=== PATIENT | male | born 1955 | race Caucasian/White ===

== ENCOUNTER 2024-02-13 16:11 | Emergency (ER) | payer BC, SELFPAY ==
[2024-02-13 16:14] VITALS: BP 153/84
--- NOTE | 2024-02-13 16:45 | ED.GENMED ---
History of Present Illness
General
Chief Complaint: Abdominal Pain
Source: patient
Exam Limitations: none
Time Seen by Provider: 02/13/24 16:45
Nursing documentation reviewed up to this point in time: agreed with
Travel History
Have you had any contact with someone who has COVID-19?: No
Do you have any symptoms of coronavirus? Fever > 100 degrees, chills, cough, shortness of breath, sore throat, loss of taste or smell, muscle aches, or headache?: No
History of Present Illness
History of Present Illness:
Patient presents to ED secondary to sudden onset of left lower abdominal pain associated with nausea and vomiting, on approximately 5 hours prior to arrival, while he was driving. Patient has had kidney stones approximately 15 years ago, but is
unsure if his symptoms are similar. Denies fever or chills. Denies trauma. Denies diarrhea. Abdominal pain described as sharp, with radiation to his left flank, without any alleviating or exacerbating factors. Denies recent illness. Denies
recent change in medications or diet. Patient's medical history is significant atrial fibrillation, for which he takes Eliquis.
Review of Systems
Review of Systems
Allergies reviewed?: Yes
All Other Systems: ROS reviewed and negative except as documented in HPI and ROS
Constitutional: Reports no symptoms; Denies fever
Respiratory: Reports no symptoms
Cardiac: Reports no symptoms
ABD/GI: Reports abdominal pain, nausea and vomiting; Denies diarrhea
: Reports no symptoms
Musculoskeletal: Reports no symptoms
Skin: Reports no symptoms
Neurological: Reports no symptoms
Phy Exam
Physical Exam
Physical Exam:
Physical Exam
General: no apparent distress, not acutely ill. afebrile
Head: nc/at. eomi
Neck: supple. no meningeal signs.
Heart: s1/s2 regular rate and rhythm, no murmur. equal radial pulses.
Lungs: no acute respiratory distress. clear bilaterally
Abdomen: normal bowel sounds. not tender.
Neuro: alert and oriented. no focal neurological deficits
Skin: no rash
Psychiatric: well kept. interactive and cooperative
Extremities: no edema. no calf tenderness.
Course
Orders/Labs/Results
Orders:
Orders
02/13/24 17:09
Ketorolac [Toradol] 30 mg IV NOW STA
02/13/24 17:10
0.9% Sodium Chloride 500 ml [Nss] 500 ml IV BOLUS
02/13/24 17:19
Complete Blood Count/With Diff Urgent
Comprehensive Metabolic Panel Urgent
Lipase Urgent
Urinalysis Reflex To Culture Urgent
Date Specimen was Collected: 02/13/24
Time Specimen was Collected: 17:10
Urine Microscopic Reflex Cult Urgent
02/13/24 17:25
CT Abd/pel Without Iv Or Oral Urgent
Comment:
Reason For Exam: left flank pain w hx kidney stone
02/13/24 17:31
Morphine Sulfate 2 mg IV NOW STA
02/13/24 19:06
Oxycodone/Acetaminophen [Percocet 5/325] 1 tablet PO NOW STA
Abnormal Lab Results
02/13/24
17:19
WBC 12.8 H 10^3/uL
(4.8-10.8)
MPV 11.7 H fL
(7.4-10.4)
Abs Immat Gran (auto) 0.1 H 10^3/uL
(0-0.05)
Absolute Neuts (auto) 10.2 H 10^3/uL
(1.4-6.5)
Absolute Monos (auto) 0.7 H 10^3/uL
(0.1-0.6)
Neutrophils % 79.4 H %
(42.2-75.2)
Lymphocytes % 13.9 L %
(20.5-51.1)
Chloride 111 H mmol/L
(98-107)
Carbon Dioxide 20 L mmol/L
(22-30)
BUN 29 H mg/dl
(9-20)
Creatinine 1.7 H mg/dL
(0.7-1.3)
Glucose 120 H mg/dl
(70-99)
Urine Ketones 2+ A
(Negative)
Ur Occult Blood Reflex 1+ A
(Negative)
Urine RBC 11-15 A /HPF
(0-2)
Urine Bacteria (Reflex) Few A
(Negative)
02/13/24 17:19
02/13/24 17:19
Vital Signs
Initial and Last Documented VS:
Initial Vital Signs
Temp Pulse Resp BP Pulse Ox
97.6 F 64 20 153/84 98
02/13/24 16:14 02/13/24 16:14 02/13/24 16:14 02/13/24 16:14 02/13/24 16:14
Last Documented Vital Signs
Temp Pulse Resp BP Pulse Ox
99.0 F 75 20 137/90 95
02/13/24 20:09 02/13/24 19:30 02/13/24 16:14 02/13/24 19:00 02/13/24 19:00
MDM/Problems Addressed
MDM/Problems Addressed:
History, exam, and CT scan consistent with obstructing renal stone. Patient reports complete resolution of pain after treatment. Patient will be discharged home in stable condition, to the care of his , with referral to urology for an
outpatient consultation. Advised to return to ED with worsening symptoms, i.e. fever/worsening pain/inability urinate.
Increased creatinine noted on initial blood work today, without any previous blood work for comparison. As such, will advise patient to speak with her primary care physician and repeat blood work after resolution of his current symptoms.
*Critical Care Note
Total Time (30-74mins, 75-104mins- exclusive of procedures): Not Applicable
ED Attending Note
-
Portions of this chart may have been created with voice recognition software.� Occasional wrong word or��sound alike� substitutions may have occurred due to the inherent limitations of voice recognition software.
Discharge Plan
Departure
Patient Disposition: Home (Routine Discharge)
Date of Disposition: 02/13/24
Time of Disposition: 19:02
Patient with high blood pressure during this ER visit?: Yes
Condition: Good
Discharge Problem:
Renal colic, Acute renal failure (ARF)
Instructions: Renal Colic (DC), Acute Kidney Injury (DC)
Prescriptions:
New
oxycodone-acetaminophen [Percocet] 5-325 mg Tablet
1 tab PO Q6HPRN PRN (Reason: pain) Qty: 12 0RF
tamsulosin [Flomax] 0.4 mg Capsule
0.4 mg PO DAILY Qty: 7 0RF
ondansetron 4 mg Tablet,Disintegrating
4 mg PO TIDPRN PRN (Reason: nausea/vomiting) Qty: 12 0RF
ketorolac 10 mg tablet
10 mg PO Q8H PRN (Reason: Pain) Qty: 10 0RF
Rx Instructions:
maximum total duration of 5 days from all oral, intranasal, or parenteral formulations
No Action
carvedilol 25 mg Tablet
25 mg PO BID
sotalol 80 mg Tablet
80 mg PO BID
omeprazole 20 mg Capsule,Delayed Release(Dr/Ec)
20 mg PO DAILY
escitalopram oxalate [Lexapro] 10 mg Tablet
10 mg PO DAILY
Eliquis 5 mg Tablet
5 mg PO BID
Referrals:
Sofía Oropeza MD [Family Provider] -
John Schafer MD [Active] -
Activity Restrictions/Additional Instructions:
As discussed, please follow-up with your primary care physician and/or referred to urologist for further evaluation and treatment. Please return to ED with worsening symptoms, i.e. fever/worsening pain/inability urinate. In addition, blood work
today revealed abnormal kidney function test, which will need to be repeated in 2 to 3 weeks via your primary care physician. Your prescriptions have been sent electronically to [facility] pharmacy in [place].
Interventions
Interventions:
*Risk Screen - Suicide Last Done: 02/13/24 16:14
*General Assessment Last Done: 02/13/24 16:14
*Neglect/Abuse Screening Last Done: 02/13/24 16:14
ED- Fall Risk Assessment Last Done: 02/13/24 17:14
*ED COVID-19 Vaccine History Last Done: 02/13/24 17:14
*Nursing Disposition Last Done: 02/13/24 20:09
YM-Qqvsoj-Grlzwconsh Assessment Last Done: 02/13/24 17:14
Discharge Date and Time
Discharge Date/Time: 02/13/24 20:10
[2024-02-13 17:14] VITALS: BMI 30.8
[2024-02-13] MEDS: NSS 500 IV (17:19)
[2024-02-13] MEDS: TORADOL 30 MG IV (17:19)
[2024-02-13 17:30] LABS: % Basophils 0.9 % (0-2); % Eosinophils 0.2 % (0-6); % Immature Granulocytes 0.4 % (0-0.5); % Lymphocytes 13.9 % (20.5-51.1); % Monocytes 5.2 % (1.7-9.3); % Neutrophils 79.4 % (42.2-75.2); Absolute Basophils 0.1 10^3/uL (0-0.2); Absolute Immature Granulocytes 0.1 10^3/uL (0-0.05); Absolute Lymphocytes 1.8 10^3/uL (1.2-3.4); Absolute Monocytes 0.7 10^3/uL (0.1-0.6); Absolute Neutrophils 10.2 10^3/uL (1.4-6.5); Hematocrit 44.7 % (39.0-52.0); Mean Corp Hgb Conc. 33.6 g/dL (33.0-37.0); Mean Corpuscular Hgb 29.8 pg (27.0-31.0); Mean Corpuscular Volume 88.7 fL (80.0-94.0); Mean Platelet Volume 11.7 fL (7.4-10.4); Nucleated Red Blood Cells % 0 % (-); Platelet Count 172 10^3/uL (130-400); Red Blood Cell Count 5.04 10^6/uL (4.70-6.10); Red Cell Dist. Width 12.9 % (11.5-14.5); White Blood Cell Count 12.8 10^3/uL (4.8-10.8)
[2024-02-13 17:47] LABS: ALT (SGPT) 38 U/L (0-50); AST (SGOT) 37 U/L (17-59); Albumin 4.4 g/dl (3.5-5.0); Alkaline Phosphatase 110 U/L (38-126); Blood Urea Nitrogen 29 mg/dl (9-20); Calcium 9.5 mg/dl (8.4-10.2); Carbon Dioxide 20 mmol/L (22-30); Chloride 111 mmol/L (98-107); Estimated Creatinine Clearance 50 ml/min; Glucose 120 mg/dl (70-99); Lipase 68 U/L (23-300); Potassium 5.1 mmol/L (3.5-5.1); Sodium 138 mmol/L (135-145); Total Protein 7.4 g/dl (6.3-8.2); eGFR 43.91
[2024-02-13 18:11] VITALS: BP 139/93
[2024-02-13 19:00] VITALS: BP 137/90
[2024-02-13] MEDS: PERCOCET 5/325 1 TABLET PO (19:37)
[2024-02-13 19:52] LABS: Urine Albumin Trace (Neg - Trace); Urine Bilirubin Negative (Negative); Urine Character Clear (Clear); Urine Color Yellow; Urine Glucose Negative (Negative); Urine Ketone 2+ (Negative); Urine Leukocyte Negative (Negative); Urine Nitrite Negative (Negative); Urine Occult Blood 1+ (Negative); Urine Urobilinogen Negative (Neg - 1+)
[2024-02-13 20:02] LABS: Urine Sperm Seen; Urine Squamous Cell 0-2 /LPF (Few)
[2024-02-13 20:03] LABS: Urine Bacteria Few (Negative)
[2024-02-13 20:04] LABS: Urine White Cell 0-2 /HPF (0-5)
== END 2024-02-13 20:10 | disposition home or self-care (01) ==
LOC: EMR 16:11
PROVIDERS: EMERGENCY PHYSICIAN Emergency Medicine; FAMILY PHYSICIAN Internal Medicine
DX: R10.32 Left lower quadrant pain (principal)
CPT/HCPCS: 99284; 96374; 96361; 74176; 80053; 81003; 81015; 83690; 85025

== ENCOUNTER 2024-02-14 22:21 | Inpatient (IN) | payer BC, SELFPAY ==
[2024-02-14 20:34] VITALS: BP 117/70
[2024-02-14 20:53] LABS: % Basophils 0.3 % (0-2); % Eosinophils 0.1 % (0-6); % Immature Granulocytes 0.4 % (0-0.5); % Lymphocytes 8.5 % (20.5-51.1); % Monocytes 9.5 % (1.7-9.3); % Neutrophils 81.2 % (42.2-75.2); Absolute Basophils 0.1 10^3/uL (0-0.2); Absolute Immature Granulocytes 0.1 10^3/uL (0-0.05); Absolute Lymphocytes 1.4 10^3/uL (1.2-3.4); Absolute Monocytes 1.6 10^3/uL (0.1-0.6); Absolute Neutrophils 13.2 10^3/uL (1.4-6.5); Hematocrit 38.7 % (39.0-52.0); Hemoglobin 13.9 g/dL (13.0-18.0); Mean Corp Hgb Conc. 35.9 g/dL (33.0-37.0); Mean Corpuscular Hgb 30.9 pg (27.0-31.0); Mean Platelet Volume 11.3 fL (7.4-10.4); Nucleated Red Blood Cells % 0 % (-); Platelet Count 157 10^3/uL (130-400); White Blood Cell Count 16.3 10^3/uL (4.8-10.8)
[2024-02-14 20:54] LABS: Urine Albumin Trace (Neg - Trace); Urine Bilirubin Negative (Negative); Urine Character Clear (Clear); Urine Color Yellow; Urine Glucose Negative (Negative); Urine Ketone Trace (Negative); Urine Leukocyte Trace (Negative); Urine Nitrite Negative (Negative); Urine Occult Blood 4+ (Negative); Urine Urobilinogen Negative (Neg - 1+)
[2024-02-14 21:03] LABS: Urine Bacteria Moderate (Negative); Urine Red Blood Cell 90-100 /HPF (0-2); Urine White Cell 0-2 /HPF (0-5)
[2024-02-14 21:04] LABS: Lactic Acid 1.1 mmol/L (0.7-2.0)
[2024-02-14 21:06] LABS: ALT (SGPT) 44 U/L (0-50); AST (SGOT) 67 U/L (17-59); Albumin 3.9 g/dl (3.5-5.0); Alkaline Phosphatase 102 U/L (38-126); Blood Urea Nitrogen 29 mg/dl (9-20); Calcium 8.6 mg/dl (8.4-10.2); Carbon Dioxide 19 mmol/L (22-30); Chloride 107 mmol/L (98-107); Glucose 101 mg/dl (70-99); Potassium 3.9 mmol/L (3.5-5.1); Sodium 132 mmol/L (135-145); Total Bilirubin 1.4 mg/dl (0.2-1.3); Total Protein 6.7 g/dl (6.3-8.2); eGFR 36.13
[2024-02-14 21:34] VITALS: BP 120/70
[2024-02-14 21:40] VITALS: BP 120/70; BMI 32.9
--- NOTE | 2024-02-14 21:42 | ED.GENMED ---
History of Present Illness
General
Chief Complaint: Fever
Source: patient, spouse, previous radiology exam (ER visit from yesterday February 12. Complains of left flank pain. CAT scan showed 7 mm proximal left ureteral stone with mild hydronephrosis. Creatinine of 1.7.) and previous hospital records (ED
visit from yesterday complaining of left flank pain found to have 7 mm proximal left ureteral stone along with elevated creatinine of 1.7.)
Exam Limitations: none
Time Seen by Provider: 02/14/24 21:24
Travel History
Have you had any contact with someone who has COVID-19?: No
Do you have any symptoms of coronavirus? Fever > 100 degrees, chills, cough, shortness of breath, sore throat, loss of taste or smell, muscle aches, or headache?: No
History of Present Illness
History of Present Illness:
This is a 68-year-old gentleman with history of paroxysmal atrial fibrillation maintained on Eliquis, history of hypertension, hyperlipidemia and remote history of kidney stones who initially presented to this ED yesterday with complaints of abrupt
onset of left flank pain, colicky pain in nature and was found to have a 7 mm proximal left ureteral stone with mild hydronephrosis. He was also noted to have elevated creatinine of 1.7.
Unknown as to his baseline creatinine but he is maintained on Eliquis 5 mg twice daily and according to patient and has no prior history of renal insufficiency.
Discharge to home with a prescription for Flomax, Percocet, Zofran, Toradol tablets. He has only been taking Tylenol as needed for pain with last dose this morning. He admits that left flank pain has not resolved but is markedly improved from
yesterday. This afternoon however since 3 PM he developed onset of chills and fever.
He denies nausea nor vomiting, no diarrhea or constipation, denies dysuria nor urgency nor gross hematuria. Thus far has not passed the stone.
He has an initial appointment with urology, Dr. Schafer scheduled for tomorrow afternoon at 4 PM.
Past History
Past History
ED Past Medical History: Arrthythmia (Paroxysmal atrial fibrillation), GERD, HTN, Hypercholesterolemia, Psychiatric and Other (Kidney stones)
ED Past Surgical History: Other (Hernia repair)
Social History
Tobacco: Non-smoker
Alcohol: None
Personal:
Living: with family
Employment: Employed
Family History
Family History: Other (Noncontributory)
Phy Exam
Physical Exam
Physical Exam:
GENERAL: 68-year-old gentleman appears his stated age, awake and alert, pleasant, appears in no acute distress. is accompanying. Low-grade fever noted. Hemodynamically stable.
EYE: anicteric
NECK: Supple, nontender, no meningismus, no significant adenopathy.
ENT: oral mucosa is moist. No rhinorrhea.
CARDIAC: Regular rate and rhythm. no murmur.
LUNGS: Clear breath sounds bilaterally, no acute respiratory distress, no wheezes/rales/rhonchi
ABDOMEN: Soft, nondistended, without focal tenderness, no r/g, minimal left CVA tenderness with percussion only. Normoactive BS.
NEUROLOGICAL: Alert and oriented x3, no focal neuro deficits.
SKIN: Mildly hot to touch and dry, normal color, skin intact. No rash.
MUSCULOSKELETAL: No C/C/E. peripheral pulses are full and equal b/l. No palpable tenderness.
PSYCH: Normal and appropriate interaction.
Course
Orders/Labs/Results
Orders:
Orders
02/14/24 Breakfast
NPO
Allow oral meds: Yes
Allow clear liquids: No
02/14/24 20:43
CMP [Comprehensive Metabolic Panel] Urgent
Complete Blood Count/With Diff Urgent
Lactic Acid Urgent
Urinalysis Reflex To Culture Urgent
Date Specimen was Collected: 02/14/24
Time Specimen was Collected: 20:38
Urine Microscopic Reflex Cult Urgent
Blood Culture Urgent
MICHAEL Source: Blood/Venous
Specimen Description:
Urine Culture Urgent
MICHAEL Source: U
Specimen Description:
Date Specimen was Collected: 02/14/24
Time Specimen was Collected: 20:38
02/14/24 21:42
0.9% Sodium Chloride 1000 ml [Nss] 2,000 ml IV BOLUS
Acetaminophen [Tylenol] 1,000 mg PO NOW STA
02/14/24 21:43
Cefepime HCl [Maxipime] 2,000 mg IV NOW STA
02/14/24 21:44
Abdomen Xray - 1 View [CR Abdomen - 1 View] Urgent
Comment:
Reason For Exam: L flank pain. 7 mm L prox ureteral stone-CT 02/12
02/14/24 21:48
Sterile Water [Sterile Water For Injection] 10 ml .ROUTE .K-MED ONE
02/14/24 22:03
Admit/Transfer Patient As Directed
Co-Sign Provider:
Level of Care: Inpatient admission
Assign to:: Telemetry
Physician / Group: ivette renee
Diagnosis: ureteral stone
Reason for Telemetry: Arrhythmia
Date to Stop Telemetry: 02/17/24
Time to Stop Telemetry: 11:00
Reason for Hospitalization: left ureteral stone
Expected length of stay greater than two midnights?: Yes
ELOS- Estimated Length of Stay in days: 3
I certify the patient meets the requirements for IP care: Yes
02/14/24 22:04
Code Status As Directed
Resuscitation Status: Full Code
02/14/24 22:07
EKG [Electrocardiogram (*1)] Stat
Reason for Study: Atrial Fibrillation
02/14/24 22:51
0.9% Sodium Chloride 1000 ml [Nss] 1,000 ml IV 125 mls/hr
02/14/24 22:51
UROLOGY CONSULT Routine
Consulting Provider: Angel Luis Cope
Was physician already notified: Yes
Activity As Directed
Activity Level: As Tolerated
Pneumatic Compression Sleeves As Directed
Type: Knee high
Vital Signs As Directed
Frequency: Per unit guidelines
DX Deep Vein Thrombosis Video Routine
02/14/24 22:59
HYDROmorphone [Dilaudid] 1 mg IV Q4HPRN PRN
02/15/24 02:00
Acetaminophen [Tylenol] 650 mg PO Q4HPRN PRN
02/15/24 06:00
Basic Metabolic Panel IN AM
Complete Blood Count/No Diff IN AM
02/15/24 08:00
Atorvastatin [Lipitor] 10 mg PO DAILY
Carvedilol [Coreg] 25 mg PO BID
Diltiazem [Cardizem] 30 mg PO BID
Escitalopram Oxalate [Lexapro] 10 mg PO DAILY
Pantoprazole [Protonix] 40 mg PO DAILY
Sotalol [Betapace] 80 mg PO BID
02/15/24 10:00
Cefepime HCl [Maxipime] 1,000 mg IV Q12H
02/16/24 06:00
Basic Metabolic Panel IN AM
Complete Blood Count/No Diff IN AM
02/17/24 06:00
Basic Metabolic Panel IN AM
Complete Blood Count/No Diff IN AM
02/17/24 11:00
DC Protocol for Telemetry ONCE
02/18/24 06:00
Basic Metabolic Panel IN AM
Complete Blood Count/No Diff IN AM
02/19/24 06:00
Basic Metabolic Panel IN AM
Complete Blood Count/No Diff IN AM
Abnormal Lab Results
02/14/24
20:43
WBC 16.3 H 10^3/uL
(4.8-10.8)
RBC 4.50 L 10^6/uL
(4.70-6.10)
Hct 38.7 L %
(39.0-52.0)
MPV 11.3 H fL
(7.4-10.4)
Abs Immat Gran (auto) 0.1 H 10^3/uL
(0-0.05)
Absolute Neuts (auto) 13.2 H 10^3/uL
(1.4-6.5)
Absolute Monos (auto) 1.6 H 10^3/uL
(0.1-0.6)
Neutrophils % 81.2 H %
(42.2-75.2)
Lymphocytes % 8.5 L %
(20.5-51.1)
Monocytes % 9.5 H %
(1.7-9.3)
Sodium 132 L mmol/L
(135-145)
Carbon Dioxide 19 L mmol/L
(22-30)
BUN 29 H mg/dl
(9-20)
Creatinine 2.0 H mg/dL
(0.7-1.3)
Glucose 101 H mg/dl
(70-99)
Total Bilirubin 1.4 H mg/dl
(0.2-1.3)
AST 67 H U/L
(17-59)
Urine Ketones Trace A
(Negative)
Ur Occult Blood Reflex 4+ A
(Negative)
Leukocyte Esterase Rfl Trace A
(Negative)
Urine RBC 90-100 A /HPF
(0-2)
Urine Bacteria (Reflex) Moderate A
(Negative)
02/14/24 20:43
02/14/24 20:43
Vital Signs
Initial and Last Documented VS:
Initial Vital Signs
Temp Pulse Resp BP Pulse Ox
100.2 F 74 22 117/70 94
02/14/24 20:34 02/14/24 20:34 02/14/24 20:34 02/14/24 20:34 02/14/24 20:34
Last Documented Vital Signs
Temp Pulse Resp BP Pulse Ox
100.6 F H 64 16 101/66 93
02/14/24 21:40 02/15/24 00:30 02/14/24 21:40 02/15/24 00:00 02/15/24 00:30
MDM/Problems Addressed
Differential Diagnosis Includes:
Patient has known proximal left ureteral stone as per CT yesterday presents with acute onset of fever, shaking chills.
Significant concern for infected stone/pyelonephritis.
Concern for sepsis.
Concern for progression of acute kidney injury, electrolyte abnormality.
Will check KUB�assess for visualization of left ureteric stone, assess for stone migration.
Will initiate IV fluid bolus and IV antibiotics.
Labs show elevated white blood cell count of 16.3, has trended up from yesterday 12.8.
Creatinine has trended up from 1.7 yesterday to now 2.0. No old labs to compare but according to patient and his no prior history of renal insufficiency.
Urinalysis shows 90-100 RBCs, moderate bacteria and although only 0-2 WBCs there is still some significant concern for upper tract infection.
Blood cultures, urine cultures are pending.
Will admit to hospitalist service and will plan to consult urology as well.
Chronic conditions affecting care: Arrhythmia (Patient has history of atrial fibrillation, maintained on Eliquis and he did take his evening dose tonight. Will hold Eliquis going forward as he may require urologic procedure)
*Radiology
Radiology exam reviewed: preliminary read by ED provider (KUB film shows questionable calcific density on the left just lateral to the third and fourth lumbar vertebrae)
*Pulse Oximetry
Patient hypoxic: no
*Law Reporter Interpretation
Rate: normal
Interpretation: normal
Rhythm: sinus
*Critical Care Note
Total Time (30-74mins, 75-104mins- exclusive of procedures): Not Applicable
Update Note
Update Note:
Urology aware. Case discussed with Dr. Cope.
Agrees with n.p.o. after midnight and hold Eliquis. Will plan for OR, stone extraction in the a.m.
ED Attending Note
-
Portions of this chart may have been created with voice recognition software.� Occasional wrong word or��sound alike� substitutions may have occurred due to the inherent limitations of voice recognition software.
Discharge Plan
Departure
Patient Disposition: Admit
Date of Disposition: 02/14/24
Time of Disposition: 22:00
Admit to: Med/Surg
Admit to doctor: Ivette
Presentation/result/management discussed w/ accepting MD/DO: Hospitalist
Condition: Serious
Discharge Problem:
Fever r/o sepsis, Calculus of proximal left ureter, Acute kidney injury
Interventions
Interventions:
*Risk Screen - Suicide Last Done: 02/14/24 20:34
*General Assessment Last Done: 02/14/24 21:40
*Neglect/Abuse Screening Last Done: 02/14/24 20:34
ED- Fall Risk Assessment Last Done: 02/14/24 21:42
*ED COVID-19 Vaccine History Last Done: 02/14/24 21:40
ED- Neurological Assessment Last Done: 02/14/24 21:42
ED-Skin Assessment Last Done: 02/14/24 21:42
--- NOTE | 2024-02-14 21:42 | HPS.HSE ---
Addendum entered and electronically signed by Shama Esteban MD 02/14/24 22:33:
Patient seen and examined independently with COMPUTER SYSTEMS SUPPORT SPECIALIST. 68-year-old male history of atrial fibrillation Eliquis, kidney stone, hypertension, anxiety, here for left flank pain and fever and chills since yesterday. He came to ER yesterday had CT abdomen
pelvis which showed 7 mm proximal left ureteral calculus with associated mild left hydronephrosis resulting in Urosepsis. Also with PAVEL. Check urine culture, blood cultures. IV fluids. Cefepime. Hold Eliquis. Urology consulted.
Original Note:
Family Physician
-
Family Physician: NOT KNOW UNKNOWN - PT DOES
Chief Complaint
-
left flank pain
fever
History of Present Illness
68 year old with PMH for HTN, HLD, atrial fib, anxiety presented to us with left flank pain since yesterday. noted to fever of 100 at home today. worsening pain. taking Tylenol with some relief in his symptoms. stated JOHNSON. denied dizzy or syncopal
episode. denied chest pain, sob. denied cough,runny nose, congestion. denied abdominal pain, n,v,d. denied dysuria, hematuria.
patient was evaluated here at ER. he has an appt with urology tomorrow. CT with 7mm left ureteral stone.
Medical History
Past Medical History
Past Medical History: Reports Other
Additional Past Medical History:
HTN
anxiety
atrial fib
HLD
anxiety
Past Surgical History: Reports Other
Additional Past Surgical History:
hernia repair
Social History
Tobacco: Former Smoker
Alcohol: None
Drug: None
Family History
Family History: Not pertinent
Allergies / Home Medications
Allergies reflects when Allergies were last updated in [facility].
Home Medications with original date entered in [facility]
Allergy/Medication List:
Allergies
Allergy/AdvReac Type Severity Reaction Status Date / Time
No Known Allergies Allergy Verified 02/14/24 20:37
Home Medications
apixaban 5 mg tablet (Eliquis) 5 mg PO BID 02/13/24
carvedilol 25 mg tablet 25 mg PO BID 02/13/24
escitalopram oxalate 10 mg tablet (Lexapro) 10 mg PO DAILY 02/13/24
omeprazole 20 mg capsule,delayed release 20 mg PO DAILY 02/13/24
sotalol 80 mg tablet 80 mg PO BID 02/13/24
atorvastatin 10 mg tablet 10 mg PO DAILY 02/14/24
diltiazem HCl 30 mg tablet 30 mg PO BID 02/14/24
Review of Systems
-
Constitutional: Reports Fever
EENT: Reports No Symptoms
Respiratory: Reports No Symptoms
Cardiac: Reports No Symptoms
Abdomen/GI: Reports No Symptoms
: Reports Flank Pain
Musculoskeletal: Reports No Symptoms
Skin: Reports No Symptoms
Neurological: Reports No Symptoms
Endocrine: Reports No Symptoms
Hematologic/Lymphatic: Reports No Symptoms
Psych: Reports No Symptoms
Physical Exam
Vital Signs
Vital Signs
Temp Pulse Resp BP Pulse Ox
100.6 F H 68 16 120/70 92
02/14/24 21:40 02/14/24 21:40 02/14/24 21:40 02/14/24 21:40 02/14/24 21:40
Physical Exam
General: Well Developed, Well Nourished and No Apparent Distress
HEENT: NormoCephalic, Moist mucous membranes and Atraumatic
Respiratory: Clear
Cardiac: S1/S2 and Regular Rhythm; No Murmur or Rub
GI: Soft, Non Tender, Non Distended and Normal Bowel Sounds; No Organomegaly
Rectal: Deferred by Provider
Musculoskeletal: No Clubbing, No Cyanosis and No Edema
Skin: No Rash
Neuro: Nonfocal/grossly intact
Laboratory Results
-
02/14/24 20:43
02/14/24 20:43
Laboratory Results
Lactic Acid 1.1 mmol/L (0.7-2.0) 02/14/24 20:43
Total Bilirubin 1.4 mg/dl (0.2-1.3) H 02/14/24 20:43
AST 67 U/L (17-59) H 02/14/24 20:43
ALT 44 U/L (0-50) 02/14/24 20:43
Alkaline Phosphatase 102 U/L (38-126) 02/14/24 20:43
Data Reviewed
-
CT Scan: Report Reviewed by me
Lab Data: Labs Reviewed by me
Impression/Plan
-
#left flank pain likely due to left ureteral stone
-wbc 16, lactic 1.1, temp 100.6
-CT abdomen pelvis with 7 mm proximal left ureteral calculus with associated mild left hydronephrosis.
-blood and urine culture sent from ER
-iv cefepime
-Tylenol prn for fever
-Dilaudid prn for pain
-will keep NPO after MN
-strain urine
-normal saline 125cc/hr continued
-urology consulted
#acute kidney injury/hyponatremia/Metabolic acidosis likely dehydration
-cr 2.0, n 132,CO2 19,BUN 29
-normal saline continued
-monitor BMP in am
#hxt of atrial fib unclear paroxysmal vs permanent
-will obtain EKG
-HR controlled
-hold eliquis (last dose tonight)
-sotalol,Coreg, Cardizem continued
#HLD
-statin continued
#Anxiety
-Lexapro continued
#GERD
-PPI continued
#DVT prophylaxis
-scd
#CODE status
-full code
[2024-02-14] MEDS: TYLENOL 1000 MG PO (21:50)
[2024-02-14] MEDS: NSS 2000 IV (21:51)
[2024-02-14] MEDS: MAXIPIME 2000 MG IV (21:51)
[2024-02-14 22:00] VITALS: BP 109/66
[2024-02-14 23:00] VITALS: BP 103/62
--- NOTE | 2024-02-14 23:50 | EDRN ---
Patient is sleeping at this time, VSS, call ware in reach.
[2024-02-15] VITALS (35 sets, daily range): BP systolic 76–129; BP diastolic 2–100
[2024-02-15] MEDS: NSS 1000 IV ×3 (01:07→12:08)
--- NOTE | 2024-02-15 04:08 | EDRN ---
Patient ambulatory to the restroom and back in bed resting comfortably
[2024-02-15] MEDS: DILAUDID 1 MG IV ×2 (04:55→05:25)
--- NOTE | 2024-02-15 04:56 | EDRN ---
Patients heart rate increased to 130s, checked on patient, checked temperature which remains normal, pain reports that his pain is severe, medicated patient per order and will inform hospitalist in the change in heart rate.
--- NOTE | 2024-02-15 05:06 | EDRN ---
Patient placed on 3L nc, once Dilaudid kicked in o2 dropped to 86%, also spoke with hospitalist will give IV dose of Cardizem for heart rate being elevated.
[2024-02-15] MEDS: CARDIZEM 10 MG IV (05:12)
[2024-02-15] MEDS: CARDIZEM 125 IV (05:32)
--- NOTE | 2024-02-15 05:36 | EDRN ---
Spoke with Dr. Cope about patients change in status and patients increase in pain level and now in rapid afib, informed him patient received 10mg bolus of cardizem and now on cardizem drip, Dr. Cope wants hospitalist to continue to manage
pain.
[2024-02-15 05:42] LABS: Hematocrit 38.4 % (39.0-52.0); Hemoglobin 13.1 g/dL (13.0-18.0); Mean Corp Hgb Conc. 34.1 g/dL (33.0-37.0); Mean Corpuscular Hgb 30.5 pg (27.0-31.0); Mean Corpuscular Volume 89.5 fL (80.0-94.0); Mean Platelet Volume 11.7 fL (7.4-10.4); Platelet Count 135 10^3/uL (130-400); Red Blood Cell Count 4.29 10^6/uL (4.70-6.10); Red Cell Dist. Width 12.9 % (11.5-14.5); White Blood Cell Count 16.3 10^3/uL (4.8-10.8)
[2024-02-15 06:14] LABS: Blood Urea Nitrogen 25 mg/dl (9-20); Calcium 8.3 mg/dl (8.4-10.2); Carbon Dioxide 18 mmol/L (22-30); Chloride 111 mmol/L (98-107); Estimated Creatinine Clearance 49 ml/min; Glucose 93 mg/dl (70-99); Sodium 135 mmol/L (135-145)
--- NOTE | 2024-02-15 06:15 | EDRN ---
Was asked by hospitalist to give patients Sololol early to attempt to control patients HR, gave sololol and ofirmev for the heart rate and the pain/.
[2024-02-15] MEDS: BETAPACE 80 MG PO ×2 (06:16→19:50)
[2024-02-15] MEDS: OFIRMEV 100 IV (06:17)
--- NOTE | 2024-02-15 06:17 | W.PN.UPDATE ---
Update Note
Progress Note Update
RN reports while pt in severe pain HR also increased to 130s. Pt with hx of afib and took all his meds last night DENTAL FINANCIAL COORDINATOR (coreg,sotolol, cardizem)
Attempted to give 10mg cardizem ivp which resulted in NO change in HR. For now while pt NPO- will start cardizem gtt.
For severe pain will give extra dose of dilaudid.
Consider cardio consult if HR remains uncontrolled.
--- NOTE | 2024-02-15 07:02 | EDRN ---
Report to Nazanin Fritz
[2024-02-15] MEDS: NSS IV (07:39)
--- NOTE | 2024-02-15 08:00 | W.PN.URO.CBU ---
Today's Communication / Plan
-
to op room
Assessment / Plan
-
7 mm stone fevrchils robyn will stabilize with fluid resuscitaion and iv abs then stent eventual stone manipuatio removal once stabilized
Diagnosis
-
Date of Service: February 15, 2024
-
Patient Diagnosis:
left ureteral stone sepsis sydrome
Post Op Day:
Subjective
-
eeling better but pain less fevr
Objective
-
Vital Signs
Temp Pulse Resp BP Pulse Ox
98.8 F 79 16 108/77 90
02/15/24 04:55 02/15/24 07:45 02/14/24 21:40 02/15/24 07:40 02/15/24 07:45
Laboratory Results
02/15/24 05:23
02/15/24 05:23
Review of Systems
-
Constitutional: Fever and Chills
: Flank Pain
Physical Exam
-
General - well developed, well nourished, no acute distress
Chest - clear bilaterally
Abdomen - soft, non-tender, positive bowel sounds, no CVAT, no incisional pain or distention
Genitalia - normal
Rectal - normal
Skin - warm & dry with no rash
Neuro - AOx3, no motor deficits
Extremities - no clubbing, no cyanosis, no edema
Incision - clean, dry
Dressing - clean, dry, intact
Counseling
-
to oproom
Care Review
Data Reviewed
Discussed with: Hospitalist and Nursing
CT Scan: Image Pers Reviewed
[2024-02-15] MEDS: LEXAPRO 10 MG PO (08:13)
[2024-02-15] MEDS: LIPITOR 10 MG PO (08:13)
[2024-02-15] MEDS: FLOMAX 0.400000000000000022 MG PO (08:13)
[2024-02-15] MEDS: PROTONIX 40 MG PO (08:13)
[2024-02-15] MEDS: COREG 25 MG PO ×2 (09:14→19:49)
[2024-02-15] MEDS: CARDIZEM 30 MG PO ×2 (09:14→19:49)
--- NOTE | 2024-02-15 11:02 | W.PN.HOSP.TC ---
Today's Communication/Plan
-
For ureteroscopic stone retrieval today via urology
Monitor heart rate on telemetry post op
Resume rate limiting out diltiazem and sotalol if further RVR will consult cardiology
IV fluids
Assessment / Plan
Assessment / Plan
68 year old with PMH for HTN, HLD, atrial fib, anxiety presented to us with left flank pain since yesterday. noted to fever of 100 at home today. worsening pain. taking Tylenol with some relief in his symptoms. stated JOHNSON. denied dizzy or syncopal
episode. denied chest pain, sob. denied cough,runny nose, congestion. denied abdominal pain, n,v,d. denied dysuria, hematuria.
patient was evaluated here at ER. he has an appt with urology tomorrow. CT with 7mm left ureteral stone.
#left flank pain likely due to left ureteral stone
-wbc 16, lactic 1.1, temp 100.6
-CT abdomen pelvis with 7 mm proximal left ureteral calculus with associated mild left hydronephrosis./
-blood and urine culture sent from ER
-iv cefepime
-Tylenol prn for fever
-Dilaudid prn for pain
-will keep NPO after MN/4 OR this morning
-strain urine
-normal saline 125cc/hr continued
-urology consulted
#acute kidney injury/hyponatremia/Metabolic acidosis likely dehydration
-cr 2.0, n 132,CO2 19,BUN 29
-normal saline continued
-monitor BMP in am
#hxt of atrial fib unclear paroxysmal vs permanent
-will obtain EKG which actually showed sinus rhythm
-HR controlled/became poorly controlled overnight with increasing flank pain prompting short-term diltiazem drip now off
-hold eliquis (last dose tonight)
-sotalol,Coreg, Cardizem continued
#HLD
-statin continued
#Anxiety
-Lexapro continued
#GERD
-PPI continued
#DVT prophylaxis
-scd
#CODE status
-full code
Anticipated Discharge: Within 24 hours
Subjective/Interval History
-
Date of Service: February 15, 2024
Pain overnight prompted increase in heart rate to the point that had to be placed on a Cardizem drip for rate control with A-fib
Objective Data
-
Labs:
Laboratory Results
02/15/24
05:23
WBC 16.3 H
Hgb 13.1
Hct 38.4 L
Plt Count 135
Sodium 135
Potassium 4.0
Chloride 111 H
Carbon Dioxide 18 L
BUN 25 H
Creatinine 1.8 H
Glucose 93
Calcium 8.3 L
Vital Signs:
Vital Signs
Temp Pulse Resp BP Pulse Ox
98.8 F 89 18 108/70 88
02/15/24 04:55 02/15/24 09:21 02/15/24 09:21 02/15/24 09:21 02/15/24 08:00
I&O
02/14/24 02/15/24 02/16/24
06:59 06:59 06:59
Intake Total 1000 / 1000
Balance 1000 / 1000
Review of Systems
-
History Source: Patient
All other systems: Reviewed and negative
Cardiac: Reports Palpitations
Abdomen/GI: Reports Abdominal Pain
Genitourinary: Reports Flank Pain
Physical Exam
-
General: Well Developed
HEENT: Normocephalic
Respiratory: Clear to Auscultation
Cardiac: Irregular Rhythm and Tachycardic
GI: Soft and Tender
Neuro: Awake, Alert and Oriented
Psych: Calm
Data Reviewed
-
Total Time Spent with Patient (in minutes): 45
Labs: Labs Reviewed by me (16,000 white count similar as yesterday/creatinine 1.8)
--- NOTE | 2024-02-15 11:29 | W.IMMPOSTOP ---
Surgical Immed Post Op Note
-
Primary Surgeon: Gilmar
Assisting Surgeon: None
Pre-op Diagnosis: left ureteral stone, left hydronephrosis, complicated UTI
Post-op Diagnosis: Same
Procedure Performed: Cystoscopy with placement left JJ stent
Anesthesia Type: GET
Specimen / Cultures: urine for C&S
Estimated Blood Loss: None
Complications: None
[2024-02-15] MEDS: MAXIPIME 1000 MG IV ×2 (12:24→21:12)
[2024-02-15] MEDS: STERILE WATER FOR INJECTION 10 ML IV ×2 (12:24→21:12)
--- NOTE | 2024-02-15 13:11 | PTCARENOTE ---
awaiting a ready bed.
--- NOTE | 2024-02-15 15:20 | PTCARENOTE ---
Pt received from PACU s/p cysto w L stent placement. AAOx3. Afib on library monitor. 96% on 2L nasal cannula Conde draining punch color urine. No clots noted at this time. Pt denies any pain. Assessment documented.
[2024-02-16 02:49] VITALS: BP 114/78
[2024-02-16] MEDS: NSS 1000 IV (03:46)
--- NOTE | 2024-02-16 04:33 | PTCARENOTE ---
pt out put 750cc of bloody urine, urine strained no stones noted.
[2024-02-16 05:12] LABS: Hematocrit 37.5 % (39.0-52.0); Hemoglobin 12.9 g/dL (13.0-18.0); Mean Corp Hgb Conc. 34.4 g/dL (33.0-37.0); Mean Corpuscular Hgb 30.4 pg (27.0-31.0); Mean Corpuscular Volume 88.2 fL (80.0-94.0); Mean Platelet Volume 11.9 fL (7.4-10.4); Platelet Count 150 10^3/uL (130-400); Red Blood Cell Count 4.25 10^6/uL (4.70-6.10); Red Cell Dist. Width 13.2 % (11.5-14.5); White Blood Cell Count 15.6 10^3/uL (4.8-10.8)
[2024-02-16 05:45] LABS: Blood Urea Nitrogen 22 mg/dl (9-20); Calcium 8.6 mg/dl (8.4-10.2); Carbon Dioxide 18 mmol/L (22-30); Chloride 108 mmol/L (98-107); Estimated Creatinine Clearance 73 ml/min; Glucose 151 mg/dl (70-99); Sodium 137 mmol/L (135-145); eGFR > 60.00
[2024-02-16 07:18] VITALS: BP 130/92
[2024-02-16] MEDS: FLOMAX 0.400000000000000022 MG PO (08:16)
[2024-02-16] MEDS: BETAPACE 80 MG PO ×2 (08:16→21:12)
[2024-02-16] MEDS: LIPITOR 10 MG PO (08:17)
[2024-02-16] MEDS: COREG 25 MG PO ×2 (08:17→21:14)
[2024-02-16] MEDS: CARDIZEM 30 MG PO ×2 (08:17→21:12)
[2024-02-16] MEDS: LEXAPRO 10 MG PO (08:18)
[2024-02-16] MEDS: PROTONIX 40 MG PO (08:18)
--- NOTE | 2024-02-16 08:23 | W.PN.HOSP.TC ---
Today's Communication/Plan
-
Continue to hold Eliquis
Ongoing hematuria from Conde catheter
Await culture results
Continue cefepime
Increase activity
Monitor H&H with hematuria
Renal status improved after Conde catheter insertion
Assessment / Plan
Assessment / Plan
68 year old with PMH for HTN, HLD, atrial fib, anxiety presented to us with left flank pain since yesterday. noted to fever of 100 at home today. worsening pain. taking Tylenol with some relief in his symptoms. stated JOHNSON. denied dizzy or syncopal
episode. denied chest pain, sob. denied cough,runny nose, congestion. denied abdominal pain, n,v,d. denied dysuria, hematuria.
patient was evaluated here at ER. he has an appt with urology tomorrow. CT with 7mm left ureteral stone.
#left flank pain likely due to left ureteral stone/now status post ureteroscopic and stone retrieval
-Indwelling Conde catheter with gross hematuria return
-wbc 16, lactic 1.1, temp 100.6/leukocytosis trending down
-CT abdomen pelvis with 7 mm proximal left ureteral calculus with associated mild left hydronephrosis./
-blood and urine culture sent from ER
-iv cefepime
-Tylenol prn for fever
-Dilaudid prn for pain
-normal saline 125cc/hr continued/will discontinue
-urology consulted
#acute kidney injury/hyponatremia/Metabolic acidosis likely dehydration
-cr 2.0, n 132,CO2 19,BUN 29>> 1.2 creat
-normal saline continued
-monitor BMP in am
#hxt of atrial fib unclear paroxysmal vs permanent
-will obtain EKG which actually showed sinus rhythm
-HR controlled/became poorly controlled overnight with increasing flank pain prompting short-term diltiazem drip now off
-hold eliquis (last dose tonight)
-sotalol,Coreg, Cardizem continued
#HLD
-statin continued
#Anxiety
-Lexapro continued
#GERD
-PPI continued
#DVT prophylaxis
-scd
#CODE status
-full code
Anticipated Discharge: Within 24 hours
Subjective/Interval History
-
Date of Service: February 16, 2024
Last episode of abdominal pain was around 5 PM yesterday none since continues to have gross hematuria through Conde return
Objective Data
-
Labs:
Laboratory Results
02/16/24
04:17
WBC 15.6 H
Hgb 12.9 L
Hct 37.5 L
Plt Count 150
Sodium 137
Potassium 4.0
Chloride 108 H
Carbon Dioxide 18 L
BUN 22 H
Creatinine 1.2
Glucose 151 H
Calcium 8.6
Vital Signs:
Vital Signs
Temp Pulse Resp BP Pulse Ox
98.0 F 120 18 130/92 93
02/16/24 07:18 02/16/24 08:17 02/16/24 07:18 02/16/24 08:17 02/16/24 07:18
I&O
02/15/24 02/16/24 02/17/24
06:59 06:59 06:59
Intake Total 3585 / 3585
Output Total 2100 / 2100
Balance 1485 / 1485
Review of Systems
-
History Source: Patient
Constitutional: Reports No Symptoms
EENT: Reports No Symptoms Reported
Respiratory: Reports No Symptoms
Cardiac: Reports No Symptoms
Abdomen/GI: Reports No Symptoms; Denies Abdominal Pain
Genitourinary: Reports Bleeding, Dark Urine and UTI
Physical Exam
-
General: Well Developed
HEENT: Normocephalic
Respiratory: Clear to Auscultation
Cardiac: Irregular Rhythm and Tachycardic (At time went agitated or with pain)
Genito-urinary: No Costovertebral Tender
Musculoskeletal: No Clubbing
Neuro: Awake, Alert, Oriented and AO x 3
Psych: Calm
Data Reviewed
-
Total Time Spent with Patient (in minutes): 56
Labs: Labs Reviewed by me (White count 15.6 hemoglobin stable at 12.9 creatinine now down to 1.2 from 1.8 on entrance bicarb 18)
--- NOTE | 2024-02-16 09:49 | W.PN.URO.CBU ---
Today's Communication / Plan
-
Keep Conde another 24 hours
Continue to hold Eliquis in setting of gross hematuria
Follow cultures
Conde out in AM 02/17/24
Assessment / Plan
-
s/p urgent placement left JJ stent 02/15/24 for partially obstructing left proximal ureteral stone and concern for complicated UTI
Diagnosis
-
Date of Service: February 16, 2024
-
Patient Diagnosis:
left ureteral stone
sepsis syndrome
---
s/p placement left JJ stent 02/15/24
Subjective
-
Feels well
No chills
No catheter bother
Objective
-
Vital Signs
Temp Pulse Resp BP Pulse Ox
98.0 F 120 18 130/92 93
02/16/24 07:18 02/16/24 08:17 02/16/24 07:18 02/16/24 08:17 02/16/24 08:00
Intake and Output
02/15/24 02/16/24 02/17/24
06:59 06:59 06:59
Intake Total 3585 / 3585
Output Total 2099 / 2099
Balance 1485 / 1485
Intake:
Oral fluids 960 / 960
IV fluids (Total) 2625 / 2625
NSS 1500 / 1500
Output:
Urine, Conde 2099 / 2099
Laboratory Results
02/16/24 04:17
02/16/24 04:17
Review of Systems
-
Constitutional: Fatigue
Respiratory: No Symptoms
Cardiac: No Symptoms
Abdomen/GI: No Symptoms
: Bleeding
Neurological: No Symptoms
Physical Exam
-
General - well nourished, no acute distress
Abdomen - soft, non-tender
Genitalia - normal with Conde draining bloody urine
[2024-02-16] MEDS: MAXIPIME 1000 MG IV ×2 (11:07→21:11)
[2024-02-16] MEDS: STERILE WATER FOR INJECTION 10 ML IV ×2 (11:07→21:12)
[2024-02-16 11:30] VITALS: BP 114/80
--- NOTE | 2024-02-16 14:03 | CM ---
met with patient and at bedside.patient lives with his in split level home with no steps to enter home.his bed and bath is 8 steps to second level,he amb i and is i with his adl's.dr argenis kaufman is his pcp and he uses [facility] in
[place] for his meds,patient has never had a vn or been to ip rehab.
patient is adm with calculous of left urether and is sp left jj stent.his smith will remain for 24 hrs due to gross hematuria.patient will discharge home with no needs.
plan: discharge home with no needs.
[2024-02-16 15:20] VITALS: BP 117/83
[2024-02-16 19:20] VITALS: BP 132/87
[2024-02-16 23:20] VITALS: BP 117/88
[2024-02-17 03:15] VITALS: BP 136/84
[2024-02-17 05:02] LABS: Hemoglobin 13.3 g/dL (13.0-18.0); Mean Corp Hgb Conc. 34.1 g/dL (33.0-37.0); Mean Platelet Volume 11.9 fL (7.4-10.4); Platelet Count 178 10^3/uL (130-400); Red Blood Cell Count 4.43 10^6/uL (4.70-6.10)
[2024-02-17 05:41] LABS: Blood Urea Nitrogen 27 mg/dl (9-20); Calcium 8.9 mg/dl (8.4-10.2); Carbon Dioxide 21 mmol/L (22-30); Chloride 106 mmol/L (98-107); Estimated Creatinine Clearance 98 ml/min; Glucose 121 mg/dl (70-99); Potassium 4.4 mmol/L (3.5-5.1); Sodium 135 mmol/L (135-145); eGFR > 60.00
[2024-02-17 06:00] VITALS: BMI 33.9
[2024-02-17 07:11] VITALS: BP 141/94
--- NOTE | 2024-02-17 07:34 | W.PN.HOSP.TC ---
Addendum entered and electronically signed by Maicol Yo MD 02/17/24 16:15:
Gross hematuria exacerbation by Eliquis for suspected to be a factor
Original Note:
Today's Communication/Plan
-
Will await assessment with urology for proposed void trial
Continue to hold Eliquis and would defer resumption after cleared by urology
We discontinue cefepime antibiotic with negative urine culture
Leukocytosis felt to be now reactive and not related to infection
Add stool softener
Assessment / Plan
Assessment / Plan
68 year old with PMH for HTN, HLD, atrial fib, anxiety presented to us with left flank pain since yesterday. noted to fever of 100 at home today. worsening pain. taking Tylenol with some relief in his symptoms. stated JOHNSON. denied dizzy or syncopal
episode. denied chest pain, sob. denied cough,runny nose, congestion. denied abdominal pain, n,v,d. denied dysuria, hematuria.
patient was evaluated here at ER. he has an appt with urology tomorrow. CT with 7mm left ureteral stone.
#left flank pain likely due to left ureteral stone/now status post ureteroscopic and stone retrieval
-Indwelling Conde catheter with gross hematuria return
-wbc 16, lactic 1.1, temp 100.6/leukocytosis trending down
-CT abdomen pelvis with 7 mm proximal left ureteral calculus with associated mild left hydronephrosis./
-blood and urine culture sent from ER
-iv cefepime empirically/urine culture no growth so we will discontinue
-Tylenol prn for fever
-Dilaudid prn for pain
-normal saline 125cc/hr continued/will discontinue
-Persisting hematuria/void trial today?
-urology consulted
#acute kidney injury/hyponatremia/Metabolic acidosis likely dehydration
-cr 2.0, n 132,CO2 19,BUN 29>> 1.2 creat >> 0.9/resolved PAVEL
-monitor BMP /stable
#hxt of atrial fib unclear paroxysmal vs permanent
-will obtain EKG which actually showed sinus rhythm
-HR controlled/became poorly controlled overnight with increasing flank pain prompting short-term diltiazem drip now off
-hold eliquis (last dose 02/13
-sotalol,Coreg, Cardizem continued
#HLD
-statin continued
#Anxiety
-Lexapro continued
#GERD
-PPI continued
#DVT prophylaxis
-scd
#CODE status
-full code
Anticipated Discharge: Within 24 hours
Subjective/Interval History
-
Date of Service: February 17, 2024
Still with some hematuria through Conde bag no bowel movement since surgery worried about all the weight he gained
Objective Data
-
Labs:
Laboratory Results
02/17/24
04:32
WBC 18.0 H
Hgb 13.3
Hct 39.0
Plt Count 178
Sodium 135
Potassium 4.4
Chloride 106
Carbon Dioxide 21 L
BUN 27 H
Creatinine 0.9
Glucose 121 H
Calcium 8.9
Vital Signs:
Vital Signs
Temp Pulse Resp BP Pulse Ox
97.6 F 89 16 136/84 95
02/17/24 03:15 02/17/24 03:15 02/17/24 03:15 02/17/24 03:15 02/17/24 03:15
I&O
02/16/24 02/17/24 02/18/24
06:59 06:59 06:59
Intake Total 3585 / 3585 1380 / 1380
Output Total 2099 / 2099 2074 / 2074
Balance 1485 / 1485 -695 / -695
Review of Systems
-
History Source: Patient
Constitutional: Reports No Symptoms
Respiratory: Reports No Symptoms
Cardiac: Reports No Symptoms
Abdomen/GI: Reports No Symptoms
Genitourinary: Reports Dark Urine
Physical Exam
-
General: Well Developed and No Apparent Distress
HEENT: Normocephalic
Respiratory: Clear to Auscultation
Cardiac: Regular Rhythm
GI: Soft and Nontender
Genito-urinary: Bloody Urine and Conde
Skin: IV Access / Catheter Site
Psych: Calm
Data Reviewed
-
Total Time Spent with Patient (in minutes): 56
Labs: Labs Reviewed by me (Slight increase in leukocytosis to 18,000/afebrile overnight/hemoglobin stable and trending up to 13.3)
[2024-02-17] MEDS: PROTONIX 40 MG PO (08:03)
[2024-02-17] MEDS: BETAPACE 80 MG PO (08:03)
[2024-02-17] MEDS: CARDIZEM 30 MG PO (08:03)
[2024-02-17] MEDS: LEXAPRO 10 MG PO (08:03)
[2024-02-17] MEDS: SENNA SYRUP 8.80000000000000071 MG PO (08:03)
[2024-02-17] MEDS: COREG 25 MG PO (08:03)
[2024-02-17] MEDS: FLOMAX 0.400000000000000022 MG PO (08:03)
[2024-02-17] MEDS: LIPITOR 10 MG PO (08:04)
--- NOTE | 2024-02-17 09:10 | PN.CDI ---
CDI
- -
CDI:
Physician Documentation Request
Admit Date: 02/14/24 22:21
Dear Doctor Sanaz,
Clinical Indicators:
Patient admitted with left ureteral stone; s/p Cystoscopy with placement left JJ stent 02/14.
Home medications include: Apixaban 5 mg tablet (Eliquis) 5 mg PO BID
02/15 PN, 'Continue to hold Eliquis Ongoing hematuria from Conde catheter'
Please clarify if there is a relationship between the hematuria and Eliquis use:
Yes, hematuria is related to/associated with/exacerbated by Eliquis use.
No, hematuria is not related to/associated with/exacerbated by Eliquis use but it is due to ___. (Please specify)
Unable to determine
Use of terms such as suspected, likely, concern for, or probable (associated with a specific diagnosis that is being evaluated, monitored, or treated as if it exists) are acceptable and can be coded in the inpatient setting, when documented at the
time of discharge.
Thank you,
RHIANNON Alejandro RN
CDI Specialist
available via tiger text
Please use your independent medical judgment in providing your response.
--- NOTE | 2024-02-17 09:22 | W.PN.URO.CBU ---
Today's Communication / Plan
-
Cleared for discharge home: discussed with Hospitalist
Will continue to hold Eliquis until gross hematuria clears
Will follow up to discuss definitive stone surgery
Assessment / Plan
-
s/p urgent placement left JJ stent 02/15/24 for partially obstructing left proximal ureteral stone and concern for complicated UTI
Diagnosis
-
Date of Service: February 17, 2024
-
Patient Diagnosis:
left ureteral stone
sepsis syndrome
---
s/p placement left JJ stent 02/15/24
Blood and urine cultures negative
Subjective
-
Feels well
Conde out, voiding bloody urine as expected
Objective
-
Vital Signs
Temp Pulse Resp BP Pulse Ox
97.7 F 71 19 141/94 95
02/17/24 07:11 02/17/24 07:11 02/17/24 07:11 02/17/24 07:11 02/17/24 08:00
Intake and Output
02/16/24 02/17/24 02/18/24
06:59 06:59 06:59
Intake Total 3585 / 3585 1380 / 1380
Output Total 2099
Balance 1485 / 1485 -695 / -695
Intake:
Oral fluids 960 / 960 1380 / 1380
IV fluids (Total) 2625 / 2625
NSS 1500 / 1500
Output:
Urine, Conde 2099
Laboratory Results
02/17/24 04:32
02/17/24 04:32
Review of Systems
-
Constitutional: No Symptoms
Respiratory: No Symptoms
Cardiac: No Symptoms
Abdomen/GI: No Symptoms
: Bleeding
Neurological: No Symptoms
Physical Exam
-
General - well developed, well nourished, no acute distress
Abdomen - soft, non-tender, no CVAT
Genitalia - normal
Skin - warm & dry with no rash
Neuro - AOx3, no motor deficits
[2024-02-17 11:12] VITALS: BP 119/85
--- NOTE | 2024-02-17 11:38 | W.DCSUMMARY ---
Discharge Summary
Discharge Data
Date of Admission: 02/14/24
Date of Discharge: 02/17/24
Total time spent discharging patient (in min): 39
-
Pending Results: No
Hospital Course
68-year-old male who presented with a presentation of left-sided flank pain consistent with renal colic and found to have a 7 mm stone and a temperature of 100.3 degrees he has a history of paroxysmal atrial fibrillation and is on multiple rate
limiting agents including carvedilol sotalol and diltiazem and after his admission overnight in the ED the patient developed rapid ventricular response A-fib necessitating a short-term course of diltiazem IV prior to being taken to the OR with
urologic consultation for a removal of a left-sided 7 mm proximal ureteral stone and underwent a stent placement of a JJ stent on the left side for a partially obstructing left proximal ureteral stone with concern for a complicated UTI with his
presentation the patient was placed on empiric coverage with cefepime with culture results eventually in the postop setting noting no growth and discontinuation of antibiotic course prior to his discharge at the time of presentation his Eliquis
anticoagulant therapy in relation to his chronic history of A-fib was held and he has continued to have hematuria throughout the course of his admission and even after Conde catheter removal and passing a void trial. At this point in time he is
considered stable for discharge with stable hemodynamics and electrolyte status his PAVEL on presentation has resolved with IV hydration and intervention for his ureteral stone. Urologic service will follow-up with the patient for definitive stone
surgery as an outpatient he was instructed to resume his Eliquis dose once his hematuria clears and to keep urology appraised of that status.
Discharge Plan
-
Patient Disposition: Home (Routine Discharge)
Discharge Diagnosis/Procedures: Status post urgent placement of left JJ stent for partially obstructing left proximal ureteral stone
Concern for complicated UTI ruled out by negative culture
Hematuria
Passed void trial
Paroxysmal atrial fibrillation
Condition: Fair
Diet: No restrictions
Activity: No restrictions
Driving Restrictions: As prior to admission
Referrals:
Angel Luis Cope MD [Active] - (you have a stent expect blood in urine frequency urgency of urination call [phone] dr dom snyder to set up next phase of treatmenrt)
Sofía Oropeza MD [Family Provider] - in less than 1 week
Additional Discharge Medication Instructions: You can resume Eliquis once blood in urine goes away
Should also hold fish oil till blood clears from urine
Prescriptions:
New
tamsulosin 0.4 mg Capsule
0.4 mg PO DAILY Qty: 30 0RF
Continued
carvedilol 25 mg Tablet
25 mg PO BID
sotalol 80 mg Tablet
80 mg PO BID
omeprazole 20 mg Capsule,Delayed Release(Dr/Ec)
20 mg PO DAILY
escitalopram oxalate [Lexapro] 10 mg Tablet
10 mg PO DAILY
diltiazem HCl 30 mg Tablet
30 mg PO BID
ascorbic acid (vitamin C) [Vitamin C] 500 mg Tablet
500 mg PO DAILY
rosuvastatin 10 mg tablet
10 mg PO DAILY
cholecalciferol (vitamin D3) [Vitamin D3] 25 mcg (1,000 unit) Tablet
25 mcg PO DAILY
Held
Eliquis 5 mg Tablet
5 mg PO BID
Hold Instructions: Resume on 02/21/24. Can resume Eliquis once blood in urine goes away but no later than Wednesday
omega 9-wee-drq-fish oil [Fish Oil] 1,000 mg (120 mg-180 mg) Capsule
1 cap PO DAILY
Hold Instructions: Resume on 02/21/24. Hold patient well until blood and urine goes away
--- NOTE | 2024-02-17 11:43 | W.DS.TRANS ---
DC Summary - Belt Measurer
-
Discharge Instructions:
Discharge Diagnosis/Procedures Status post urgent placement of left JJ stent
for partially obstructing left proximal ureteral
stone
Concern for complicated UTI ruled out by
negative culture
Hematuria
Passed void trial
Paroxysmal atrial fibrillation
Diet No restrictions
Activity No restrictions
Driving Restrictions As prior to admission
Instructions:
Stand-Alone Forms:
Changes to Home Medications: Yes
Discharge Medications:
DC Medications w/original date entered in [facility]
apixaban 5 mg tablet (Eliquis) 5 mg PO BID Blood Clot Prevention/Tx 02/13/24
carvedilol 25 mg tablet 25 mg PO BID Blood Pressure 02/13/24
escitalopram oxalate 10 mg tablet (Lexapro) 10 mg PO DAILY Depression 02/13/24
omeprazole 20 mg capsule,delayed release 20 mg PO DAILY Gastrointestinal Issue 02/13/24
sotalol 80 mg tablet 80 mg PO BID Arrhythmia 02/13/24
ascorbic acid (vitamin C) 500 mg tablet (Vitamin C) 500 mg PO DAILY Supplement 02/14/24
cholecalciferol (vitamin D3) 25 mcg (1,000 unit) tablet (Vitamin D3) 25 mcg PO DAILY Supplement 02/14/24
diltiazem HCl 30 mg tablet 30 mg PO BID Blood Pressure 02/14/24
omega 9-euw-gjr-fish oil 1,000 mg (120 mg-180 mg) capsule (Fish Oil) 1 cap PO DAILY Supplement 02/14/24
rosuvastatin 10 mg tablet 10 mg PO DAILY High Cholesterol 02/14/24
tamsulosin 0.4 mg capsule 0.4 mg PO DAILY #30 caps 02/17/24
Home Medication Changes
tamsulosin 0.4 mg capsule 0.4 mg PO DAILY #30 caps 02/17/24
Pending Results: No
Total time spent discharging patient (in min): 39
== END 2024-02-17 14:31 | disposition home or self-care (01) | DRG 660 ==
LOC: 2 SOUTH 22:21
PROVIDERS: Registered Nurse; Specialist; ADMITTING PHYSICIAN Hospitalist; ATTENDING PHYSICIAN Internal Medicine; CONSULT PHYSICIAN Specialist; EMERGENCY PHYSICIAN Emergency Medicine; FAMILY PHYSICIAN Internal Medicine
PROC: 0T778DZ Dilation of Left Ureter with Intraluminal Device, Via Natural or Artificial Opening Endoscopic (ICD-10-PCS; 2024-02-15)
DX: N13.6 Pyonephrosis (principal); D68.32 Hemorrhagic disorder due to extrinsic circulating anticoagulants; E87.1 Hypo-osmolality and hyponatremia; E87.20 Acidosis, unspecified; I48.0 Paroxysmal atrial fibrillation; E86.0 Dehydration; I10 Essential (primary) hypertension; N17.9 Acute kidney failure, unspecified
CPT/HCPCS: 74018; 76000; 80048; 80053; 81003; 81015; 83605; 85025; 85027; 87040; 87086; 93005; 96361; 96374; 99285; C2617

== ENCOUNTER 2024-03-09 06:31 | Day surgery (SDC) | payer BC, SELFPAY ==
[2024-03-09] VITALS (9 sets, daily range): BP systolic 110–132; BP diastolic 72–92; BMI 31.1
[2024-03-09] MEDS: NORMOSOL-R 1000 IV (10:15)
[2024-03-09] MEDS: Pyridium 200 MG PO (10:31)
--- NOTE | 2024-03-09 14:09 | PTCARENOTE ---
Patient arrived in PACU with DR Cruz and [facility]. Reported NSR at the start of case and then patient went into AFIB. Arrived in PACU monitor indicated AFIB HR 80-120, VSS. Patient has a H/O AFIB was taking Eliquis at home and has cardiac ablation
scheduled soon. Per Dr Cruz no EKG needed, patient resting comfortably without C/O.
== END 2024-03-09 16:17 | disposition home or self-care (01) ==
LOC: SDS 06:31
PROVIDERS: ATTENDING PHYSICIAN Specialist
DX: N20.1 Calculus of ureter (principal)
CPT/HCPCS: 52356; 74018; 76000; A4300; C1894; C2617